=== PATIENT | male | born 1970 | race Caucasian/White ===

== ENCOUNTER → 2023-12-16 15:16 | Outpatient (REF) | payer BC, SELFPAY | LOC: RAD 15:16 | PROVIDERS: ATTENDING PHYSICIAN Internal Medicine | DX: M25.551 Pain in right hip (principal); M54.50 Low back pain, unspecified | CPT/HCPCS: 72100; 73502 ==

== ENCOUNTER → 2024-01-06 16:51 | Outpatient (REF) | payer BC, SELFPAY | LOC: RAD 16:51 | PROVIDERS: ATTENDING PHYSICIAN Internal Medicine; REFERRING PHYSICIAN Orthopaedic Surgery | DX: Z87.891 Personal history of nicotine dependence (principal); Z72.0 Tobacco use | CPT/HCPCS: 70030; 71271 ==

== ENCOUNTER → 2024-01-21 16:25 | Outpatient (REF) | payer BC, SELFPAY | LOC: RCS 16:25 | PROVIDERS: ATTENDING PHYSICIAN Physical Medicine & Rehabilitation; FAMILY PHYSICIAN Internal Medicine | DX: Z01.818 Encounter for other preprocedural examination (principal) | CPT/HCPCS: 93005 ==

== ENCOUNTER 2024-02-06 06:27 | Inpatient (IN) | payer BC, SELFPAY ==
--- NOTE | 2024-01-30 12:17 | CM ---
Addendum entered by Zahida Christensen 01/31/24 06:42:
Surgery date was changed to 03/03/24.
Original Note:
Patient is scheduled for lumbar spine surgery on 02/04/24. Spoke with patient prior to surgery via telephone. Introduced role of the Orthopedic Navigator. Patient reports that he lives with his and daughter in a two story home. There is one step
to enter and he ahs a first floor set up. He currently functions independently. He has no DME and has never had VN services. PCP is Florencio Spencer.
Discussed orthopedic program, post surgical plans and tentative plan for patient to return home when directed by surgeon. Patient is in agreement with tentative plan and will have support from his when he goes home.
Plan: Orthopedic Navigator will remain available to assist with the care of patient and will reassess discharge needs after surgery.
--- NOTE | 2024-01-31 06:43 | CM ---
Patient is scheduled for lumbar spine surgery on 02/06/24. Spoke with patient prior to surgery via telephone. Introduced role of the Orthopedic Navigator. Patient reports that he lives with his and daughter in a two story home. There is one step
to enter and he ahs a first floor set up. He currently functions independently. He has no DME and has never had VN services. PCP is Florencio Spencer.
Discussed orthopedic program, post surgical plans and tentative plan for patient to return home when directed by surgeon. Patient is in agreement with tentative plan and will have support from his when he goes home.
Plan: Orthopedic Navigator will remain available to assist with the care of patient and will reassess discharge needs after surgery.
[2024-01-31 13:11] VITALS: BMI 34.3
[2024-01-31 13:49] LABS: Hematocrit 43.5 % (39.0-52.0); Mean Corp Hgb Conc. 34.5 g/dL (33.0-37.0); Mean Corpuscular Hgb 30.8 pg (27.0-31.0); Mean Corpuscular Volume 89.3 fL (80.0-94.0); Mean Platelet Volume 9.7 fL (7.4-10.4); Platelet Count 252 10^3/uL (130-400); Red Blood Cell Count 4.87 10^6/uL (4.70-6.10); Red Cell Dist. Width 13.2 % (11.5-14.5); White Blood Cell Count 16.4 10^3/uL (4.8-10.8)
[2024-01-31 14:08] LABS: INR 1.09; PT 13.9 Sec (11.4-14.6)
[2024-01-31 14:12] LABS: ALT (SGPT) 82 U/L (0-50); AST (SGOT) 49 U/L (17-59); Albumin 4.3 g/dl (3.5-5.0); Alkaline Phosphatase 66 U/L (38-126); Blood Urea Nitrogen 23 mg/dl (9-20); Calcium 9.4 mg/dl (8.4-10.2); Carbon Dioxide 24 mmol/L (22-30); Chloride 106 mmol/L (98-107); Estimated Creatinine Clearance 118 ml/min; Glucose 172 mg/dl (70-99); Potassium 3.7 mmol/L (3.5-5.1); Sodium 138 mmol/L (135-145); Total Bilirubin 0.5 mg/dl (0.2-1.3); Total Protein 6.8 g/dl (6.3-8.2); eGFR > 60.00
[2024-01-31 15:26] VITALS: BMI 34.3
[2024-02-06] VITALS (7 sets, daily range): BP systolic 127–158; BP diastolic 70–96; BMI 34.3
[2024-02-06] MEDS: CELEBREX 200 MG PO (12:45)
[2024-02-06] MEDS: LYRICA 150 MG PO (12:45)
[2024-02-06] MEDS: SKELAXIN 800 MG PO (12:46)
[2024-02-06] MEDS: TYLENOL 1000 MG PO (12:46)
[2024-02-06 13:00] LABS: Glucose - Point of Care 107 mg/dl (70-99)
--- NOTE | 2024-02-06 14:31 | W.PN.UPDATE ---
Documented by User: Hortencia Díaz PA-C 02/06/24 14:31
Update Note
Progress Note Update
Lumbar stenosis w/ neurogenic claudication s/p L3-L5 Decompression w/ Dr Holliday 02/06/24
DVT prophylaxis - b/l SCDs/TEDs
HTN - diet controlled - monitor BP
H/o A fib - monitor on tele
YELITZA, non-compliant w/ device - monitor O2
- IS
- Add supplemental O2 HS
GERD with Tobar's esophagus - resume PPI therapy
Fatty liver disease w/ mildly elevated transaminases - reduce max dose of Tylenol daily for post-surgical pain
HLD
Anxiety
Prediabetes
Leukocytosis in the setting of previous steroid use
Obesity, BMI 34.3.
History of tobacco abuse

Documented by User: Elan Holliday DO 02/06/24 16:31
Update Note
Progress Note Update
Lumbar stenosis w/ L HF weakness and radiculopathy s/p L3-L4 decompression and microdiscectomy w/ Dr Holliday 02/06/24
DVT prophylaxis - b/l SCDs/TEDs
HTN - diet controlled - monitor BP
H/o A fib - monitor on tele
YELITZA, non-compliant w/ device - monitor O2
- IS
- Add supplemental O2 HS
GERD with Tobar's esophagus - resume PPI therapy
Fatty liver disease w/ mildly elevated transaminases - reduce max dose of Tylenol daily for post-surgical pain
HLD
Anxiety
Prediabetes
Leukocytosis in the setting of previous steroid use
Obesity, BMI 34.3.
History of tobacco abuse
--- NOTE | 2024-02-06 16:28 | W.PN.UPDATE ---
Update Note
Progress Note Update
Orthopedic Surgery Post-op Note:
Patient is s/p L3-4 laminectomy and decompression with microdiscectomy. Waking up in PACU, following commands. Moving feet. Sensation intact in BL LE. May get up as tolerated with assistance. Pain control. PT/OT. DVT ppx with SCDs (no
anticoagulation for 24 hrs post-op).
[2024-02-06] MEDS: NORMOSOL-R 1000 IV (16:50)
[2024-02-06] MEDS: TYLENOL 500 MG PO ×2 (17:53→23:43)
[2024-02-06] MEDS: ULTRAM 50 MG PO ×2 (17:53→23:43)
[2024-02-06] MEDS: PROTONIX 40 MG PO (17:53)
--- NOTE | 2024-02-06 18:10 | PTCARENOTE ---
1745: Patient arrived to 2S. Head to toe assessment completed. Neurovascular assessment completed on all 4 extremities. [place] on back clean dry and intact. IVF running per order. Call smith within reach and bed in lowest position. at bedside.
[2024-02-06] MEDS: SENOKOT 17.1999999999999993 MG PO (20:23)
[2024-02-06] MEDS: COLACE 100 MG PO (20:23)
[2024-02-06] MEDS: NEURONTIN 300 MG PO (20:23)
[2024-02-06] MEDS: ANCEF 5 IV (20:24)
[2024-02-06] MEDS: FLUSH (NSS) 1 FLUSH IV (20:24)
[2024-02-06] MEDS: LIPITOR 10 MG PO (21:45)
[2024-02-07 03:00] VITALS: BP 128/74
[2024-02-07] MEDS: NORMOSOL-R 1000 IV (03:38)
[2024-02-07] MEDS: FLUSH (NSS) 1 FLUSH IV (03:39)
[2024-02-07] MEDS: ANCEF 5 IV (03:39)
[2024-02-07 05:12] LABS: Hematocrit 42.2 % (39.0-52.0); Hemoglobin 14.4 g/dL (13.0-18.0)
[2024-02-07] MEDS: ULTRAM 50 MG PO (05:34)
[2024-02-07] MEDS: TYLENOL 500 MG PO (05:34)
[2024-02-07 05:40] LABS: Blood Urea Nitrogen 17 mg/dl (9-20); Calcium 8.6 mg/dl (8.4-10.2); Carbon Dioxide 22 mmol/L (22-30); Chloride 102 mmol/L (98-107); Estimated Creatinine Clearance > 125 ml/min; Glucose 208 mg/dl (70-99); Potassium 4.1 mmol/L (3.5-5.1); Sodium 135 mmol/L (135-145); eGFR > 60.00
[2024-02-07 07:56] VITALS: BP 143/84
--- NOTE | 2024-02-07 08:09 | CM ---
Reviewed chart and held rounds with PT, OT and RN. Patient had planned lumbar spine surgery with Dr. Holliday on 02/05. Met with patient at bedside. Confirmed information previously obtained for assessment and discussed discharge plans. Patient
continues to plan to return home at discharge. He will have support from his and daughter when he goes home. Reviewed that he will work with PT/OT this morning and that discharge needs will depend on his functional status. However, no needs
currently identified.
Patient has no DME at home.
Patient will use [facility] pharmacy for discharge prescriptions.
[2024-02-07] MEDS: NEURONTIN 300 MG PO (08:44)
[2024-02-07] MEDS: COLACE 100 MG PO (08:45)
[2024-02-07] MEDS: PROTONIX 40 MG PO (08:45)
[2024-02-07] MEDS: SENOKOT 17.1999999999999993 MG PO (08:45)
[2024-02-07] MEDS: NICODERM TRANSDERMAL 14 MG TRANSDERM (08:45)
[2024-02-07 09:03] VITALS: BP 137/80; PULSE 76; O2SAT 95
--- NOTE | 2024-02-07 09:43 | W.PN.ORTHO ---
Today's Communication / Plan
-
D/c today if remaining clinically stable, does well w/ OT.
Assessment
.
Distal Motor Intact: Yes
Dressing:
Clean, dry and intact.
Assessment:
Lumbar stenosis w/ L HF weakness and radiculopathy s/p L3-L4 decompression and microdiscectomy w/ Dr Holliday 02/06/24
DVT prophylaxis - b/l SCDs/TEDs
HTN - diet controlled - BPs stable
H/o A fib - maintaining NSR on tele
YELITZA, non-compliant w/ device - O2 stable on RA
- IS
- S/p supplemental O2 HS
GERD with Tobar's esophagus - resumed PPI therapy
Fatty liver disease w/ mildly elevated transaminases - reduced max dose of Tylenol daily for post-surgical pain
HLD
Anxiety
Prediabetes
Leukocytosis in the setting of previous steroid use
Obesity, BMI 34.3.
History of tobacco abuse
Plan
.
Surgery / Date: L3-L4 decompression & microdisc. w/ Dr Holliday 02/05
DVT Prophylaxis: Other (b/l SCDs/TEDs )
Activity:
Out of bed.
PT/OT
Discharge Plan: Home
Subjective
.
.:
Patient resting comfortably in his chair this AM.
Low back pain tolerable w/ minimal pain meds.
Denies any new current complaints.
Did well w/ PT this AM.
Eager for potential d/c today.
Vital Signs and Labs
.
Vital Signs and Labs:
Lab Results
02/07/24 04:20
02/07/24 04:20
Temp Pulse Resp BP Pulse Ox
97.8 F 77 20 143/84 100
02/07/24 07:56 02/07/24 07:56 02/07/24 07:56 02/07/24 07:56 02/07/24 07:56
PT 13.9 Sec (11.4-14.6) 01/31/24 13:07
INR 1.09 01/31/24 13:07
Physical Exam
-
HEENT: No pallor, cyanosis, or jaundice. Throat clear.
NECK: Supple. No JVD.
RESPIRATORY: Lungs clear to auscultation.
CVS: S1, S2 normal. RRR.�
ABDOMEN: Soft, non-tender. No distension. Obese.
EXTREMITIES: Strength equal, no calf pain with palpation/dorsiflexion. Calves soft.
LABORER/KEY MAN: AOx3. No focal deficits. ironer machine grossly intact
--- NOTE | 2024-02-07 11:02 | W.DS.TRANS ---
DC Summary - Supervisor Kennel
-
Discharge Instructions:
Discharge Diagnosis/Procedures Lumbar stenosis with weakness and radiculopathy
s/p L3-L4 decompression and microdiscectomy with
Dr Holliday 02/06/24
Diet Regular
Activity As tolerated
Additional Activity No heavy lifting >10 lbs
Driving Restrictions Not until seen by your Dr
Bathing Restrictions OK to shower in 4 days
Instructions:
Stand-Alone Forms: Mg Lumbar Spine DC Instr
Changes to Home Medications: Yes
Discharge Medications:
DC Medications w/original date entered in [facility]
aspirin 81 mg tablet,delayed release 81 mg PO DAILY Blood Clot Prevention/Tx 01/30/24
atorvastatin 10 mg tablet (Lipitor) 10 mg PO HS High Cholesterol 01/30/24
yaxirsywrnw-lienfxgvh-dxy C-Mn 500 mg-400 mg capsule 3 cap PO DAILY Supplement 01/30/24
omega-3 acid ethyl esters 1 gram capsule (Lovaza) 2 cap PO DAILY Supplement 01/30/24
omeprazole 20 mg tablet,delayed release 20 mg PO DAILY Gastrointestinal Issue 01/30/24
semaglutide 0.25 mg or 0.5 mg (2 mg/3 mL) subcutaneous pen injector (Ozempic) 0.25 mg SC QWEEK weight management 01/30/24
mupirocin 2 % topical ointment 1 applic topical BID infection prevention #1 tube 01/31/24
acetaminophen 500 mg tablet (Tylenol Extra Strength) 500 mg PO Q6H #60 tabs 02/07/24
clobetasol 1 applic topical DAILYPRN PRN rash ##0 02/07/24
docusate sodium 100 mg capsule 100 mg PO BID #30 caps 02/07/24
gabapentin 300 mg capsule 300 mg PO BID neuropathic pain #30 caps 02/07/24
lorazepam 0.5 mg tablet (Ativan) 0.5 mg PO BIDPRN PRN anxiety #1 tab 02/07/24
ondansetron HCl 4 mg tablet 4 mg PO Q6H PRN nausea and vomiting #30 tabs 02/07/24
oxycodone 5 mg tablet 5 - 10 mg (1 - 2 x 5 mg) PO Q6H PRN moderate-severe pain #30 tabs 02/07/24
sennosides 8.6 mg tablet (Senna Laxative) 17.2 mg (2 x 8.6 mg) PO BID #30 tabs 02/07/24
Home Medication Changes
acetaminophen 500 mg tablet (Tylenol Extra Strength) 500 mg PO Q6H #60 tabs 02/07/24
docusate sodium 100 mg capsule 100 mg PO BID #30 caps 02/07/24
gabapentin 300 mg capsule 300 mg PO BID neuropathic pain #30 caps 02/07/24
ondansetron HCl 4 mg tablet 4 mg PO Q6H PRN nausea and vomiting #30 tabs 02/07/24
oxycodone 5 mg tablet 5 - 10 mg (1 - 2 x 5 mg) PO Q6H PRN moderate-severe pain #30 tabs 02/07/24
sennosides 8.6 mg tablet (Senna Laxative) 17.2 mg (2 x 8.6 mg) PO BID #30 tabs 02/07/24
Pending Results: No
[2024-02-07 11:04] VITALS: BP 146/86
[2024-02-07 11:30] VITALS: BP 137/84
--- NOTE | 2024-02-07 12:27 | OR.RPT ---
Operative Report
Operative Report
Orthopedic Surgery Operative Report
Date of Surgery: 02/06/24
PREOPERATIVE DIAGNOSES:
1. Lumbar spinal stenosis and disc herniation with radiculopathy, L3-4
2. Left hip flexor weakness
POSTOPERATIVE DIAGNOSES:
1. Lumbar spinal stenosis and disc herniation with radiculopathy, L3-4
2. Left hip flexor weakness
PROCEDURE PERFORMED:
1. L3-4 laminectomy and decompression with microdiscectomy
SURGEON: Elan Holliday D.O.
PLANT MAINTENANCE MECHANIC: STEPHANIE Pacheco, who helped with patient and limb positioning and retraction
ANESTHESIA: General endotracheal
COMPLICATIONS: None
ESTIMATED BLOOD LOSS: 10 cc
DRAINS: None
SPECIMEN: L3-4 disc material sent to pathology
IMPLANTS: None
INDICATION FOR SURGERY: Patient has a large L3-4 disc herniation with radiculopathy and left hip flexor weakness. He underwent conservative treatment with injections which improved his radiculopathy but not his weakness. He elected to undergo the
aforementioned surgical procedures. Before surgery, his radiculopathy symptoms recurred as well. The risks, benefits, alternatives, and indications were discussed with the patient in detail. The risks include, but are not limited to bleeding
requiring transfusion, infection, need for reoperation, nerve or blood vessel damage, anesthetic risks, need for further surgery, continued pain, blood clots in the legs, heart attack, stroke, , dural tear, nerve root injury, numbness,
weakness, paralysis. The patient understands the risks and elected to proceed. Informed consent was obtained preoperatively. The patient was optimized medically prior to surgery.
PROCEDURE IN DETAIL: The patient was identified in the preoperative holding area. The surgical site was appropriately marked. The patient was then brought to the operating room. General endotracheal anesthesia was achieved. The patient was
given routine preoperative intravenous antibiotics. The patient was turned to the prone position. Great care was taken to pad and protect all extremities and pressure points. The incision site was marked using fluoroscopy. The patient was prepped
and draped in the usual sterile manner. A preoperative surgical time-out was taken.
A standard midline approach to the lumbar spine was performed. The dissection was carried out to the spinal lamina. Dissection was then carried out laterally to expose the medial aspect of the left facet. Xray was obtained to confirm levels.
Laminectomy was then carried out at L3-4. A partial left medial facetectomy was carried out. Ligamentum flavum was removed. The thecal sac and traversing nerve root were retracted and the disc herniation was encountered. The disc space was incised
using a 15-blade. Disc material was then removed and sent to lab as specimen. After the offending disc was removed, the disc space was irrigated. The decompression was once again checked and both the thecal sac and traversing root were found to be
adequately decompressed.
The surgical site was copiously irrigated. 40 mg of kennalog was placed over the thecal sac and traversing root at L3-4. The muscle was approximated using vicryl suture. Fascia was closed using #1 stratafix suture. Vancomycin powder was placed. The
deep and superficial subcutaneous tissues were closed using vicryl suture. Skin was approximated with monocryl suture. Dermabond was applied to the skin. A sterile dressing was placed. The patient was turned to the supine position and awoken from
anesthesia. The patient tolerated the procedure well with no immediate complications.
Throughout the surgery, neuromonitoring was used. All counts were correct at the end of the surgery.
Elan Holliday D.O.
Orthopedic Surgery
== END 2024-02-07 11:50 | disposition home or self-care (01) | DRG 520 ==
LOC: 2 SOUTH 06:27
PROVIDERS: Physician Assistant; ADMITTING PHYSICIAN Orthopaedic Surgery; FAMILY PHYSICIAN Internal Medicine
PROC: 01NB0ZZ Release Lumbar Nerve, Open Approach (ICD-10-PCS; 2024-02-06)
PROC: 0SB20ZZ Excision of Lumbar Vertebral Disc, Open Approach (ICD-10-PCS; 2024-02-06)
DX: M51.16 Intervertebral disc disorders with radiculopathy, lumbar region (principal); M48.062 Spinal stenosis, lumbar region with neurogenic claudication; R53.1 Weakness; G47.33 Obstructive sleep apnea (adult) (pediatric); E66.9 Obesity, unspecified; I10 Essential (primary) hypertension; R74.01 Elevation of levels of liver transaminase levels; I48.91 Unspecified atrial fibrillation; K76.0 Fatty (change of) liver, not elsewhere classified; Z68.34 Body mass index [BMI] 34.0-34.9, adult; Z91.199 Patient's noncompliance with other medical treatment and regimen due to unspecified reason
CPT/HCPCS: 88304; 88311; 36415; 72100; 76000; 80048; 80053; 82962; 85014; 85018; 85027; 85610; 86850; 86900; 86901; 87070; 97116; 97166; 97530; 97535

== ENCOUNTER 2024-03-25 06:42 | Outpatient (RCR) | payer BC, SELFPAY | END 2024-03-25 23:59 | disposition home or self-care (01) | LOC: RPT 06:42 | PROVIDERS: ATTENDING PHYSICIAN Orthopaedic Surgery; FAMILY PHYSICIAN Internal Medicine | DX: Z47.89 Encounter for other orthopedic aftercare (principal); Z73.6 Limitation of activities due to disability | CPT/HCPCS: 97110; 97161 ==

== ENCOUNTER → 2024-04-09 06:25 | Day surgery (SDC) | payer BC, SELFPAY | LOC: GI 06:25 | PROVIDERS: ATTENDING PHYSICIAN Internal Medicine Gastroenterology | DX: K29.70 Gastritis, unspecified, without bleeding (principal); K31.89 Other diseases of stomach and duodenum; K22.89 Other specified disease of esophagus; K21.9 Gastro-esophageal reflux disease without esophagitis; Z13.810 Encounter for screening for upper gastrointestinal disorder | CPT/HCPCS: 43239; 88305; 88342 ==

== ENCOUNTER → 2025-05-24 14:50 | Outpatient (REF) | payer BC, SELFPAY | LOC: HWRAD 14:50 | PROVIDERS: ATTENDING PHYSICIAN Internal Medicine | DX: Z87.891 Personal history of nicotine dependence (principal) | CPT/HCPCS: 71271 ==

== ENCOUNTER → 2025-05-26 17:25 | Outpatient (REF) | payer BC, SELFPAY | LOC: RAD 17:25 | PROVIDERS: ATTENDING PHYSICIAN Specialist; FAMILY PHYSICIAN Internal Medicine | DX: R31.21 Asymptomatic microscopic hematuria (principal) | CPT/HCPCS: 76770 ==